=== PATIENT | female | born 1995 | race Caucasian/White ===

== ENCOUNTER → 2019-12-21 13:07 | Outpatient (BNVA) | payer SELFPAY | PROVIDERS: PCP Internal Medicine; Visit Provider Physician Assistant Medical | DX: Z20.828 Contact with and (suspected) exposure to other viral communicable diseases (principal) | CPT/HCPCS: 86481 ==

== ENCOUNTER 2022-05-01 08:35 | Outpatient (REF) | payer OTHER, SELFPAY ==
--- NOTE | ~2022-05-01 | XR_ITS ---
EXAMINATION: XR KNEE, LEFT CLINICAL INFORMATION: Left knee pain COMPARISON: None available. TECHNIQUE: Four views of the left knee. FINDINGS: No evidence for acute fracture or dislocation. No osteochondral lesions observed. Patella is intact. No erosive process seen. No significant joint effusion observed. XR/XR knee LT 4V IMPRESSION: No acute process.
--- NOTE | ~2022-05-01 | XR_ITS ---
EXAMINATION: XR KNEE, RIGHT CLINICAL INFORMATION: Right knee pain COMPARISON: None available. TECHNIQUE: Four views of the right knee. FINDINGS: No evidence for acute fracture or dislocation. No erosive process or osteochondral lesions seen. There is no significant joint effusion noted. XR/XR knee RT 4V IMPRESSION: No acute process.
== END 2022-05-01 08:36 | disposition home or self-care (01) ==
LOC: HO.XRAY 08:35
PROVIDERS: PCP Registered Nurse; Referring Provider Registered Nurse; Visit Provider Internal Medicine
DX: M25.561 Pain in right knee (principal); M25.562 Pain in left knee
CPT/HCPCS: 73564

== ENCOUNTER 2022-12-11 09:59 | Outpatient (REF) | payer OTHER, SELFPAY ==
[2022-12-11 12:16] LABS: Anion Gap 11 (12-20); Blood Urea Nitrogen 11 mg/dL (9-16); Calcium 9.7 mg/dL (8.4-10.2); Carbon Dioxide 26 mmol/L (22-29); Chloride 107 mmol/L (96-108); Cholesterol 177 mg/dL (<200); Estimated Glomerular Filt Rate > 60; Glucose Random 85 mg/dL (60-115); HDL Cholesterol 44 mg/dL (>40); LDL Cholesterol Calculated 119 mg/dL (<100); Magnesium 1.8 mg/dL (1.6-2.6); Sodium 140 mmol/L (135-145); Triglycerides 74 mg/dL (<150)
[2022-12-11 12:24] LABS: Vitamin D 25-OH Total 26.9 ng/mL (>30)
== END 2022-12-11 10:00 | disposition home or self-care (01) ==
LOC: HO.HHCL 09:59
PROVIDERS: Visit Provider Registered Nurse
DX: Z00.00 Encounter for general adult medical examination without abnormal findings (principal); E55.9 Vitamin D deficiency, unspecified; E78.2 Mixed hyperlipidemia
CPT/HCPCS: 36415; 80048; 80061; 82306; 83735

== ENCOUNTER 2023-03-17 17:16 | Emergency (ER) | payer OTHER, SELFPAY ==
[2023-03-17 17:23] VITALS: BP 135/62; PULSE 90; RESP 18; TEMP 36.4; O2SAT 100; BMI 37.0
--- NOTE | 2023-03-17 17:27 | ED.GENADULT ---
HPI - General Adult General Chief complaint: General Medical Stated complaint: needle prick at work Time Seen by Provider: 03/17/23 17:26 Source: patient Mode of arrival: ambulatory Limitations: no limitations History of Present Illness HPI narrative: 27-year-old female without past medical history presents with work-related injury patient had an accidental needle stick to left pointer finger, fat pad prior to arrival. Patient states she accidentally stuck herself with a used intermuscular needle, patient was HIV [id number] months ago. However she wanted to get checked and her job also wanted her to get evaluated today in the emergency department. Patient is vaccinated against hepatitis-B. Inpatient did wash the affected area for 15 minutes after incident. Related Data Allergies Allergy/AdvReac Type Severity Reaction Status Date / Time aspirin Allergy Unknown Verified 06/24/17 00:00 ibuprofen Allergy Unknown Verified 06/24/17 00:00 Latex Gloves Allergy Unknown Uncoded 06/24/17 00:00 Review of Systems Review of Systems: Constitutional : No Weight loss, No Fever, No Chills, No Fatigue, No Malaise ENT/Mouth : No sore throat, No Rhinorrhea Eyes: No Eye Pain, No Swelling, No Redness Cardiovascular : No Chest Pain, No SOB, No Dyspnea on Exertion, No Orthopnea, No Edema, No Palpitations Respiratory : No Cough, No Sputum, No Wheezing Gastrointestinal : No Nausea, No Vomiting, No Diarrhea, No Constipation, No abdominal Pain, No Hematochezia, No Melena Genitourinary : No Dysuria, No Urinary Frequency, No Hematuria, Musculoskeletal : No joint pain, No Myalgias, No Joint Swelling Skin : No Skin Lesions, No rash Neuro : No Weakness, No Numbness, No Dizziness, No Headache Psych : No Anxiety/Panic, No Depression All other systems reviewed and are negative Yes all other systems are reviewed and are negative PMFSH Past Medical History Attestation statement: The following information was validated with the patient. Source: old records reviewed and nursing notes reviewed Physical Exam ED Vital Signs: Vital Signs - 24 hr 03/17/23 17:23 Temperature 97.6 F Pulse Rate 90 Respiratory Rate 18 Blood Pressure 135/62 Pulse Oximetry 100 Oxygen Delivery Method Room Air BMI result Body Mass Index 37.0 vss Appearance: Alert.? Oriented X3.? No acute distress.? Head: Normocephalic, atraumatic, no step-offs or deformities Eyes: Pupils equal, round and reactive to light.? CVS: Normal heart rate and rhythm.? Pulses normal.? Respiratory: No respiratory distress.? Breath sounds normal.? Skin: Skin warm and dry.? Normal skin color.? Normal skin turgor.? + small puncture wound to the fat pad of left pointer finger. No active bleeding Extremities: No lower extremity edema.? No calf ttp. 5/5 strength to bilateral upper and lower extremities Neuro: Oriented X 3.? No motor deficit.? No sensory deficit. CN 2-12 intact Medical Decision Making Medical Decision Making MDM Narrative: 27-year-old female presents with accidental hypodermic needle injury. Physical exam small puncture wound to left pointer finger. No active bleeding Concerns for infection transmitted by blood however unlikely based off patient history and physical exam. MD irwin HIV needle stick risk assessment showing 0.003 % Or, 1 in [id number]. PEP treatment optional but not recommended, according to the article. Plan at this time basic labs. I did discuss initiation of post exposure prophylaxis with patient and discuss risks versus benefits. Patient will wait until her results arise prior to starting this medication. Will give her follow-up with Infectious Disease if necessary. Patient to follow-up with the work infection as this was a work-related injury. Educated patient on diagnosis and treatment plan, answered all question, patient verbalizes understanding. At this time patient will be discharged home, advised to return with new or worsening symptoms. Educated on worrisome signs and symptoms and when to return. At this time I feel comfortable discharge home. Differential Diagnosis Differential Diagnoses: The differential diagnosis associated with the presentation includes Concerns for infection transmitted by blood however unlikely based off patient history and physical exam. Admission/Observation Consideration of admission/observation: Escalation of care including admission/observation considered Lab Data [facility] Lab Attestation statement: I reviewed the patient's lab results. Discharge Plan Discharge Clinical Impression: Accidental hypodermic needlestick injury Patient Disposition: Home, Self-Care Instructions: Needle Stick Injuries (ED) Additional Instructions: Take your medications as prescribed. If you were prescribed antibiotics today, it is important that you take your medication to their entirety, do not skip any doses, do not finish them early. Follow-up with your primary care provider this week. Return to the emergency department with new or worsening symptoms. Such as fevers, chills, chest pain, shortness of breath, nausea, vomiting, dizziness, headache, vision changes, lethargy In case of emergency call 911 0.003?% Or, 1 in [id number]. PEP treatment optional but not recommended, according to the article. Referrals: VIANNEY FELICIANO MD [Physician] - 2 days Physician,Unknown J [Primary Care Provider] - 2 days Stand Alone Forms: Work/School Release
--- NOTE | 2023-03-17 17:41 | MHC.EDTECH ---
PATIENT BLOOD DRAWN AND SENT TO LAB .
[2023-03-17 17:52] LABS: MANUAL DIFF FLAG NO
[2023-03-17 18:07] LABS: Basophils Percent Auto 0.3 % (0-2); Eosinophils Absolute Auto 0.1 X10*3/uL (0.0-0.4); Eosinophils Percent Auto 1.2 % (0-4); Hematocrit 42.5 % (37.0-47.0); Hemoglobin 13.4 g/dl (12.0-16.0); Imm Gran Abs Auto 0.09 X10*3/uL (0.00-0.03); Imm Gran Pct Auto 0.9 % (0.0-0.4); Lymphocytes Absolute Auto 2.5 X10*3/uL (1.2-4.9); Lymphocytes Percent Auto 25.4 % (20-40); Mean Corpuscular HGB Conc 31.5 g/dl (31.0-35.0); Mean Corpuscular Hemoglobin 28.6 pg (27.0-33.0); Mean Corpuscular Volume 90.6 fL (80.0-98.0); Mean Platelet Volume 10.9 fL (9.4-12.3); Monocytes Absolute Auto 0.4 X10*3/uL (0.1-1.2); Monocytes Percent Auto 4.2 % (2-11); Neutrophils Absolute Auto 6.8 x10*3/uL (2.0-8.3); Platelet Count 290 X10*3/uL (160-400); Red Blood Count 4.69 X10*6/uL (4.20-5.50); White Blood Count 9.9 X10*3/uL (4.8-10.8)
[2023-03-17 18:18] LABS: Alanine Aminotransferase 9 U/L (0-31); Albumin Level 4.3 g/dL (3.5-5.0); Alkaline Phosphatase 69 U/L (39-117); Anion Gap 13 (12-20); Aspartate Amino Transferase 16 U/L (5-31); Bilirubin Total 0.1 mg/dL (0.0-1.0); Blood Urea Nitrogen 19 mg/dL (9-16); Calcium 9.9 mg/dL (8.4-10.2); Carbon Dioxide 24 mmol/L (22-29); Chloride 103 mmol/L (96-108); Creatinine Clr Calc Pharmacy 97.7; Estimated Glomerular Filt Rate > 60; Glucose Random 80 mg/dL (60-115); Potassium 4.1 mmol/L (3.3-5.1); Sodium 136 mmol/L (135-145); Total Protein 8.2 g/dL (6.5-8.0)
[2023-03-17 18:19] LABS: HCG Quantitative < 2 mIU/mL
[2023-03-18 07:43] LABS: HBS Num1 0.01 mIU/mL (0-7.99); HBc Num1 0.18 S/CO (0.00-0.79); HBsAGNum1 0.58 S/CO (0.00-0.99); HIV AB/AG Nonreactive (Nonreactive); HIV Num 1 0.08 S/CO (0.00-0.99); Hepatitis A Antibody IgM 0.17 Index (0-0.79); Hepatitis B Core Antibody Nonreactive (Nonreactive); Hepatitis B Surface Antigen Negative (Negative); ~HepC Num1 0.13 S/CO (0.00-0.79); ~Hepatitis A Antibody IgM Nonreactive (Nonreactive); ~Hepatitis B Surface Antibody NONREACTIVE (Nonreactive); ~Hepatitis C Antibody Nonreactive (Nonreactive)
== END 2023-03-17 17:51 | disposition home or self-care (01) ==
PROVIDERS: Physician Assistant; Emergency Provider Internal Medicine
DX: S61.231A Puncture wound without foreign body of left index finger without damage to nail, initial encounter (principal); Y28.9XXA Contact with unspecified sharp object, undetermined intent, initial encounter; Y93.9 Activity, unspecified; Y92.89 Other specified places as the place of occurrence of the external cause; Y99.0 Civilian activity done for income or pay; Z20.828 Contact with and (suspected) exposure to other viral communicable diseases; Z79.899 Other long term (current) drug therapy
CPT/HCPCS: 36415; 80053; 84702; 85025; 86704; 86706; 86709; 86803; 87340; 87389; 99282; 99283

== ENCOUNTER → 2023-03-19 09:10 | Outpatient (BNVA) | payer OTHER, SELFPAY | PROVIDERS: Visit Provider Physician Assistant Medical | DX: Z77.21 Contact with and (suspected) exposure to potentially hazardous body fluids (principal) | CPT/HCPCS: 99203 ==

== ENCOUNTER → 2023-04-23 07:59 | Outpatient (BNVA) | payer OTHER, SELFPAY | DX: Z77.21 Contact with and (suspected) exposure to potentially hazardous body fluids (principal) | CPT/HCPCS: 84450; 84460; 86706; 87389; 99211 ==

== ENCOUNTER 2024-05-18 15:42 | Outpatient (REF) | payer OTHER, SELFPAY ==
[2024-05-18 16:08] LABS: MANUAL DIFF FLAG NO
[2024-05-18 16:16] LABS: Basophils Percent Auto 0.5 % (0-2); Eosinophils Absolute Auto 0.1 X10*3/uL (0.0-0.4); Hematocrit 41.1 % (37.0-47.0); Hemoglobin 13.3 g/dl (12.0-16.0); Imm Gran Abs Auto 0.04 X10*3/uL (0.00-0.03); Imm Gran Pct Auto 0.5 % (0.0-0.4); Lymphocytes Percent Auto 25.6 % (20-40); Mean Corpuscular HGB Conc 32.4 g/dl (31.0-35.0); Mean Corpuscular Hemoglobin 29.8 pg (27.0-33.0); Mean Corpuscular Volume 91.9 fL (80.0-98.0); Mean Platelet Volume 10.8 fL (9.4-12.3); Monocytes Absolute Auto 0.4 X10*3/uL (0.1-1.2); Monocytes Percent Auto 4.9 % (2-11); Neutrophils Absolute Auto 5.2 x10*3/uL (2.0-8.3); Neutrophils Percent Auto 67.5 % (45-73); Platelet Count 253 X10*3/uL (160-400); Red Blood Count 4.47 X10*6/uL (4.20-5.50); Red Cell Distribution Width 11.5 % (11.0-16.0); White Blood Count 7.7 X10*3/uL (4.8-10.8)
[2024-05-18 16:57] LABS: Cholesterol 147 mg/dL (<200); HDL Cholesterol 33 mg/dL (>40); LDL Cholesterol Calculated 93 mg/dL (<100); Triglycerides 105 mg/dL (<150)
[2024-05-18 17:06] LABS: TSH reflex Free T4 0.99 uIU/mL (0.32-4.0); Vitamin D 25-OH Total 22.3 ng/mL (>30)
[2024-05-18 17:21] LABS: Folate 6.8 ng/mL (> or = 4.0); Vitamin B12 385 pg/mL (200-900)
--- OUTSIDE RECORDS SUMMARY | 2024-05-18 18:39 | XMS_ITS | Encounter Summary ---
Author Organization [employer] Address [address] [place] [address] Care Team Providers Care Agile Developer Name Role Phone Keisha Lao ROSEMARY Primary Care Provider [phone] Encounter Details Date Type Department Care Team ([facility] st Contact Info) Description 05/18/[address] [facility] [address], [place] [phone] Trudi Banuelos MD [address] [place] [address] Social History Tobacco Use Types Packs/Day Years Used Date Smoking Tobacco: Some Days Cigarettes Smokeless Tobacco: Never Comments:Friday - Friday one a day Alcohol Use Standard Drinks/Week Comments Not Currently 0 (1 standard drink = 0.6 oz pur e alcohol) Depression Answer Date Recorded Patient Health Questionnaire-9 Score 0 09/24/2023 Patient Health Questionnaire-9 Score 0 09/24/2023 Last PHQ-9: Questionnaire Data Not on file 0 09/24/2023 Housing Stability Answer Date Recorded What is your housing situation today? I have radha porter 11/25/[address] you li ve. Do you have problems with any of the following? None of the above 11/25/2022 Food Insecurity Answer Date Recorded Within the past 12 months, y ou worried that your food would run out before you got money to buy more: Never True 11/25/2022 Within the past 12 months,th e food you bought just didn't last and you didn't have enough money to get more: Never True Transportation Answer Date Recorded In the past 12 months, has l ack of transportation kept you from medical appts, meetings, work or from getting things needed for daily living? No 11/25/2022 Utilities Answer Date Recorded In the past 12 months, has t he electric, gas, oil or water company threatened to shut off services in your home? No 11/25/2022 Depression Answer Date Recorded Patient Health Questionnaire-2 Score 0 09/24/2023 Internet Access Answer Date Recorded Internet Access Q1 Yes 10/13/2023 Internet Access Q2 Not on file 10/13/2023 Comments Unknown Sex and Gender Information Value Date Recorded Sex Assigned at Female 12/10/2021 10:31 AM EDT Legal Sex Female 10:31 AM EDT Gender Identity Female 12/10/2021 10:31 AM EDT Sexual Orientation Straight 12/10/2021 10 :31 AM EDT documented as of this encounter Miscellaneous Notes * Telephone Encounter - Sophia Domingo RN - 05/18/2024 6:22 PM EDT ----- Message from Trudi Banuelos MD sent at 05/18/2024 5:48 PM EDT ----- Please let Trina know that vit D is still low, take vit D 2000 international units daily. Thank you. I will send to pharmacy. TC placed to pt and the above message was discussed pt to package pick up med tomorrow. documented in this encounter Plan of Treatment Not on file documented as of this encounter Visit Diagnoses Not on filedocumented in this encounter Additional Health Concerns Assessment Noted Time PHQ-9 Depression Total Score: 0 09/24/19 24 8:59 AM EDT documented as of this encounter Care Teams Agile Developer Relationship Specialty Start Date End Date Keisha Lao FNP [address] [place] [address] PCP - General Family Medicine 01/29/22 documented as of this encounter
--- OUTSIDE RECORDS SUMMARY | 2024-05-18 18:39 | XMS_ITS | Clinical Summary ---
Author Organization [employer] Address [address] [facility] [address] [place] [address] Care Team Providers Care Patient Care Assistant Name Role Phone Keisha Lao ROSEMARY Primary Care Provider [phone] Allergies Active Allergy Reactions Criticality Noted Date Comments Aspirin 05/09/2016 Other reaction(s): Nausea / Vomiting Ibuprofen 05/09/2016 Other reaction(s): Nausea / Vomiting Able to tolerate generic ibuprofen, but no brand names Medications fluocinolone ([place]-Smoothe) 0.01 % external oil Apply topically. 09/08/19 22 Active triamcinolone (Kenalog) 0.1 % cream apply by topical route 2 times every day a thin layer to the affected area(s). Mix with Cerave 09/08/19 22 Active medroxyPROGESTER one (Provera) 10 MG tablet TAKE 1 TABLET BY MOUTH DAILY FOR 10 DAYS EVERY 90 DAYS IF NO MENSES & AFTER NEGATIVE TEST 10/31/19 22 Active lidocaine (Lidoderm) 5 % patchIndications :Chronic bilateral low back pain, unspecified whether sciatica present Apply 1 patch topically Once daily as needed for moderate pain. Remove & discard patch within 12 hours or as directed by MD. 30 patch 11 05/28/19 24 Active escitalopram (Lexapro) 10 MG tabletIndication s:Anxiety Take 1 tablet (10 mg) by mouth in the morning. 90 tablet 3 09/24/19 24 Active metFORMIN (Glucophage) 500 MG tabletIndication s:Type 2 Diabetes Mellitus Take 1 tablet (500 mg) by mouth Once per day. 90 tablet 3 09/24/19 24 025 Active omeprazole OTC (PriLOSEC OTC) 20 MG EC tabletIndication s:GERD without esophagitis Take 1 tablet (20 mg) by mouth if needed each day (Acid Reflux). 90 tablet 3 09/24/19 24 025 Active amphetamine-dext roamphetamine XR (Adderall XR) 10 MG 24 hr capsuleIndicatio ns:Attention deficit hyperactivity disorder (ADHD), unspecified ADHD type Take 1 capsule (10 mg) by mouth Once per day. Do not crush or chew. 28 capsule 05/16/19 25 025 Active valACYclovir (Valtrex) 1 g tablet Take 1 tablet (1,000 mg) by mouth 2 times daily for 30 doses. Take at the first sign of outbreak, may take for 1mg BID for 1-3 days 30 tablet 05/15/19 25 025 Active predniSONE (Deltasone) 20 MG tabletIndication s:Benign paroxysmal positional vertigo, unspecified laterality,Tinni tus, right 2 tabs po daily for 5 days 10 tablet 05/19/19 25 Active cholecalciferol (Vitamin D-3) 50 MCG (2000 UT) capsuleIndicatio ns:Vitamin D deficiency Take 1 capsule (50 mcg) by mouth Once per day. 30 capsule 11 05/19/19 25 Active amphetamine-dext roamphetamine XR (Adderall XR) 10 MG 24 hr capsuleIndicatio ns:Attention deficit hyperactivity disorder (ADHD), unspecified ADHD type Take 1 capsule (10 mg) by mouth Once per day. Do not crush or chew. 28 capsule 11/16/19 24 025 Discontinued(R eorder (will not trigger notification to Pharmacy)) Active Problems Problem Noted Date Diagnosed Date Benign paroxysmal positional vertigo 05/18/2024 Assessment & Plan (05/18/2024 3:21 PM EDT): Reproducible nystagmus on exam. Suspect BPPV. Instructed to go to [facility] link provided for exercises and supportive care. -prescribed predniSONE (Deltasone) 20 MG for possible inflammation -ordered labs 05/18/24 Vitamin D deficiency 05/18/2024 Assessment & Plan (05/18/2024 3:18 PM EDT): Hx of vitamin D deficiency. -ordered vit D level 05/18/24 Tinnitus, right 05/18/2024 Assessment & Plan (05/18/2024 3:19 PM EDT): Reports Tinnitus with reproducible nystagmus on exam. -prescribed predniSONE (Deltasone) 20 MG -ordered labs 05/18/24 Vitamin D insufficiency 09/24/2023 Assessment & Plan (09/24/2023 9:39 AM EDT): -OTC Vit D supplement -Re-check Vit D level Healthcare maintenance 12/11/2022 Overview (09/24/2023): Routine Health Maintenance Optometry: wears glasses Dental: established with dental home Routine Cancer Screening Breast CA: Routine mammograms starting at 40 Cervical CA: reports pap completed 2021 at [facility], normal. Next due 2024 Colon CA: routine screening starting at 45-75 years old per [facility] Assessment & Plan (12/11/2022 10:07 AM EDT): Flu vaccine administered today ADHD (attention deficit hyperactivity disorder) 07/05/2022 Assessment & Plan (09/24/2023 8:08 AM EDT): -Improvement s/p initiation of pharmacotherapy -Continue Adderall 10mg XR daily, reviewed med safety and SE -Behavioral health: established with therapist Assessment & Plan (12/11/2022 10:04 AM EDT): -Improvement s/p initiation of pharmacotherapy -Continue Adderall 10mg XR daily, reviewed med safety and SE -Behavioral health: established with therapist Assessment & Plan (08/24/2022 4:24 PM EDT): -Improvement s/p initiation of pharmacotherapy -Continue Adderall 5mg daily, reviewed med safety and SE -Behavioral health: in process of establishing with OP therapist Assessment & Plan (07/05/2022 2:03 PM EDT): -Inattention and decreased concentration in multiple setting originating during childhood, no previous eval for ADHD -ASRS-v1.1 Screening positive, further conversation also indicative of potential ADHD -Discussed trial of treatment options - start Adderall 5mg daily. Reviewed med safety and SE. Plan to start on weekend to see how responds to medication -Interested in establishing with therapist, referral to out patient therapy placed GERD without esophagitis 07/03/2022 Assessment & Plan (09/24/2023 9:39 AM EDT): Continue omeprazole daily PRN Anxiety 03/22/2022 Overview (09/24/2023): -Continue with lexapro 10mg daily in the morning -BH: establishing with therapist Assessment & Plan (05/29/2023 8:52 AM EDT): Will trial lexapro 20mg in the morning. May use propranolol 10-20mg 30-60 min before flight if needed. Reviewed med use and SE. PCOS (polycystic ovarian syndrome) 03/20/2022 Overview (09/24/2023): -Previously followed by [facility] -Previous medications include: provera, Hallie Assessment & Plan (09/24/2023 9:38 AM EDT): Metformin 500mg daily Assessment & Plan (12/11/2022 10:03 AM EDT): ?? Start metformin XR 500mg once daily. Reviewed med safety and SE. Assessment & Plan (03/22/2022 8:44 AM EST): Psoriasis 03/20/2022 Overview (03/20/2022): -Followed by [facility] -Clobetasol PRN Seborrheic dermatitis of scalp 01/13/2017 Pitting of nails 01/13/2017 Insomnia 01/13/2017 Overview (03/22/2022): -Previous trial of trazadone and hydroxyzine, but led to daytime drowsiness/sleepiness, melatonin causes nightmares -Continue with lifestyle interventions Chronic low back pain 01/13/2017 Assessment & Plan (05/29/2023 8:50 AM EDT): -Lidocaine patches topical PRN Raynaud's phenomenon 11/11/2016 Oligomenorrhea 05/09/2016 Resolved Problems Problem Noted Date Diagnosed Date Resolved Date Anxiety and depression 03/20/202203/22 Overview (03/20/2022): -Continues on lexapro 5mg daily before bed -Waiting list for therapist Family history of diabetes mellitus 01/22/2022 12/11/2022 Prehypertension 12/09/2016 05/29/2023 Muscle pain 11/11/2016 12/11/2022 Encounters Date Type Department Care Team Description 05/18/2024 3:00 PM EDT Office Visit [facility] [address] [place] [phone] Trudi Banuelos MD Benign paroxysmal positional vertigo, unspecified laterality (Primary Dx); Tinnitus, right; Vitamin D deficiency 05/18/2024 Telephone [facility] [address] [place] [phone] Trudi Banuelos MD 05/18/2024 Orders Only [facility] [address] [address] Trudi Banuelos MD Vitamin D deficiency (Primary Dx) 05/18/2024 Telephone [facility] [address] [place] [phone] Ade Rangel, RN Nurse Triage 05/14/[address] [address] Keri Sharma MD Medication Question 05/14/2024 Orders Only [address] [address] Keri Sharma MD 05/13/2024 Refill [facility] [address] [place] [address] Keisha Lao FNP Attention deficit hyperactivity disorder (ADHD), unspecified ADHD type from Last 3 Months Immunizations Name Administration Dates Next Due DTaP 03/01/1998,04/22/1995 DTaP / Hep B / IPV 07/03/1994,05/03/1994, 995 HPV 9-Valent 11/28/2010 HPV, Unspecified 01/01/2010,12/01/2009 HiB, unspecified 07/03/1994,05/03/1994 Hib (PRP-T) 04/22/1995,03/05/1994 IPV 03/01/1998 Influenza injectable quadriv alent IIV4 with preservative 10/21/2018,10/22/2017 Influenza injectable quadriv alent preservative free 12/11/2022,12/14/2021,01/01/2021,12/13,12/31/2013,01/09/2012,11/28/2010 ,12/01/2009 Influenza, High Dose Seasona l, Preservative Free 10/23/2016 Influenza, seasonal, injecta ble, preservative free 10/23/2023,12/21/2015,11/18/2014 MMR 03/01/1998,03/03/1994 Meningococcal ACWY, unspecified 12/01/2009 Meningococcal MCV4P ACYW-135 10/27/2014 Pfizer Covid-19 Vaccine 12+ 09/07/2020 Td (adult), 5 Lf tetanus tox oid, preservative free, adsorbed 01/01/2005 Tdap 12/14/2021,01/09/2012 Varicella 01/05/2016,09/29/2006 Family History Medical History Relation Name Comments Colon cancer Father's Brother 1 Colon cancer Father's Brother 2 Breast cancer Father's Sister 1 Breast cancer Father's Sister 2 Diabetes Mother Hypertension Mother Kidney disease Mother Leukemia Mother's Brother Lymphoma Mother's Sister Fibromyalgia Sister thyroid disorder Sister Relation Name Status Comments Father's Brother 1 Father's Brother 2 Alive Father's Sister 1 Father's Sister 2 Alive Mother Mother's Brother Mother's Sister Sister Social History Tobacco Use Types Packs/Day Years Used Date Smoking Tobacco: Some Days Cigarettes Smokeless Tobacco: Never Tobacco Cessation:Ready to Q uit: Not Asked; Counseling Given: Not Answered Comments:Friday - Friday one a day Alcohol [...] Orientation Straight 12/10/2021 10 :31 AM EDT Last Filed Vital Signs Vital Sign Reading Time Taken Comments Blood Pressure 116/70 05/18/2024 3:02 PM EDT Pulse 84 05/18/2024 3:02 PM EDT Temperature 36.4 ??C (97.5 ??F) 05/18/2024 3:02 PM ED T Respiratory Rate 18 05/18/2024 3:02 PM EDT Oxygen Saturation 99% 05/18/2024 3:02 PM EDT Inhaled Oxygen Concentration - - Weight 104 kg (228 lb 9.6 oz) 05/18/2024 3:02 PM EDT Height 160 cm (5' 3 ) 09/24/2023 8:57 AM EDT Body Mass Index 40.49 09/24/2023 8:57 AM EDT Plan of Treatment Health Maintenance Due Date Last Done Comments Alcohol/Substance Use Screening 2005 Family Planning (PISQ) 2008 Pneumococcal Vaccine: Pediatrics (0 to 5 Years) and At-Risk Patients (6 to 49) Years) (1 of 2 - PCV) 2012 COVID-19 Vaccine (3 - season) 2023 09/07/2020, 01/31/2020 HPV/Cotest 12/28/2023 Cervical Cancer Screening 04/13/2024 Pap Smear 04/13/2024 04/13/2021 Depression Screening 09/23/2024 09/24/2023, 09/24/19 SDOH Screening 09/23/2024 09/24/2023 Tobacco Screening 09/23/2024 09/24/2023 Lipid Panel 05/18/2029 05/18/2024, 1102/2022, 03/25/2022, Additional history exists DTaP/Tdap/Td Vaccines (8 - Td or Tdap) 12/15/2031 12/14/2021, 01/09/2012, 01/01/2005, Additional history exists Zoster Vaccines (1 of 2) 12/28/2043 RSV Patients and Patients Aged 60 years or older (1 - 1-dose 75+ series) 2068 HIB Vaccines Completed 04/22/1995, 06/11, 05/03/1994, Additional history exists IPV Vaccines Completed 03/01/1998, 06/11, 05/03/1994, Additional history exists HPV Vaccines Completed 11/28/2010, 12/12, 12/01/2009 Meningococcal Vaccine Aged Out 10/27/2014, 010 No longer eligible based on patient's age to complete this topic HIV Screening Completed 03/25/2022 Hepatitis C Screening Completed 03/25/2022 Hepatitis B Vaccines Completed 03/19/2023, 07/03/1994, 05/03/1994, Additional history exists Influenza Vaccine Completed 10/23/2023, , 12/14/2021, Additional history exists Hepatitis A Vaccines Aged Out No long er eligible based on patient's age to complete this topic RSV under 20 months Aged Out No longe r eligible based on patient's age to complete this topic Rotavirus Vaccines Aged Out No longer eligible based on patient's age to complete this topic Procedures Procedure Name Priority Date/Time Associated Diagnosis Comments VITAMIN D,25-OH,TOTAL,IA Routine 05/18/2024 3:46 PM EDT Vitamin D deficiency VITAMIN B12/FOLATE, SERUM PANEL Routine 05/18/2024 3:46 PM EDT Benign paroxysmal positional vertigo, unspecified laterality Tinnitus, right TSH W/REFLEX TO FT4 Routine 05/18/2024 3 :46 PM EDT Benign paroxysmal positional vertigo, unspecified laterality Tinnitus, right CBC WITH AUTO DIFFERENTIAL Routine 05/18/2024 3:46 PM EDT Benign paroxysmal positional vertigo, unspecified laterality Tinnitus, right LIPID PANEL, STANDARD Routine 05/18/2024 3:46 PM EDT Hyperlipidemia, unspecified hyperlipidemia type HEPATITIS C AB W/REFL TO HCV RNA, QN, PCR Routine 03/25/2022 12:16 PM EST Routine health maintenance HIV 1 RNA, QN PCR W/RFL MINGO (RTI,PI,INTEGRASE) Routine 03/25/2022 12:16 PM EST Routine health maintenance HM PAP/HPV Routine 04/13/2021 from Last 3 Months or Most Recently Relevant to Health Maintenance Results * (ABNORMAL) Vitamin D, 25-Hydroxy, Total, Immunoassay (05/18/2024 3:46 PM EDT) Vitamin D 25-OH Total 22.3(L) >30 ng/mL [facility] Comment: Health Based Reference Values*< 20 ??ng/mL ??Fuavhtfid24-61 ng/mL ??Insufficient> 30 ??ng/mL ??Sufficient*Lalo DORSEY. N Engl J Med. 2007;357:266-280There is no well-established upper level of normal vitamin Dlevels. Some laboratories use 50 ng/mL as an upper limit ofnormal. However, toxicity is patient-dependent and may occurat any level. Careful correlation with the patient'spresentation is necessary and, if there is concern forvitamin D toxicity, treatment should be consideredirrespective of the serum level.Care must be taken in interpreting Vitamin D results fromdifferent laboratories and methodologies. ??Published datademonstrated that results from patients undergoinghemodialysis may show a negative bias when tested withvarious automated 25-OH vitamin D assays when compared toLC- MS/MS.When testing samples from patients whose predominant form ofVitamin D is Vitamin D2, such as patients receiving VitaminD2 supplementation, results that are subtherapeutic shouldbe confirmed with another method such as LC-MS/MS. Blood Venous blood specimen / Unknown 05/18/2024 3:46 PM EDT 05/18/2024 4:05 PM EDT us Trudi Banuelos MD LAB BLOOD ORDERABLES Final Result [facility] [address] [place] [address] [phone] * Vitamin B12/Folate, Serum Panel (05/18/2024 3:46 PM EDT) Vitamin B12 385 200 - 900 pg/mL [facility] Comment:NORMAL 200-900 PG/ML INDETERMINATE 160-199 PG/ML DEFICIENT < 160 PG/ML Folate 6.8 > or = 4.0 ng/mL [facility] Comment:Reference Values:> o r = 4.0 ng/mL< 4.0 ng/mL suggests folate deficiency Methotrexate, aminopterin and folinic acid(leucovorin) are chemotherapeutic agents whose molecularstructures are similar to folate; therefore, the Architectfolate assay cannot be used for patients using these drugs. Blood Venous blood specimen / Unknown 05/18/2024 3:46 PM EDT 05/18/2024 4:05 PM EDT Trudi Banuelos MD LAB BLOOD ORDERABLES Final Result Performing Organization Address City/[facility]/ZIP Co de Phone Number [facility] [address] [place] [phone] [phone] * TSH W/Reflex to FT4 (05/18/2024 3:46 PM EDT) TSH reflex Free T4 0.99 0.32 - 4.0 uIU/mL [facility] Blood Venous blood specimen / Unknown 05/18/2024 3:46 PM EDT 05/18/2024 4:05 PM EDT Trudi Banuelos MD LAB BLOOD ORDERABLES Final Result Performing Organization Address [facility]/ZIP Co de Phone Number [facility] [address] [place] [phone] * (ABNORMAL) CBC auto differential (05/18/2024 3:46 PM EDT) Pathologist [facility] White Blood Count 7.7 4.8 - 10.8 X10*3/uL [facility] Red Blood Count 4.47 4.20 - 5.50 X10*6/uL [facility] Hemoglobin 13.3 12.0 - 16.0 g/dl [facility] Hematocrit 41.1 37.0 - 47.0 % [facility] Mean Corpuscular Volume 91.9 80.0 - 98.0 fL [facility] Mean Corpuscular Hemoglobin 29.8 27.0 - 33.0 pg [facility] Mean Corpuscular HGB Conc 32.4 31.0 - 35.0 g/dl [facility] Red Cell Distribution Width 11.5 11.0 - 16.0 % [facility] Platelet Count 253 160 - 400 X10*3/uL [facility] Mean Platelet Volume 10.8 9.4 - 12.3 fL [facility] Neutrophils Percent Auto 67.5 45 - 73 % [facility] Imm Gran Pct Auto 0.5(H) 0.0 - 0.4 % [facility] Lymphocytes Percent Auto 25.6 20 - 40 % [facility] Monocytes Percent Auto 4.9 2 - 11 % [facility] Eosinophils Percent Auto 1.0 0 - 4 % [facility] Basophils Percent Auto 0.5 0 - 2 % [facility] NRBC Pct Auto 0.0 0.0 - 0.2 /100WBC [facility] Neutrophils Absolute Auto 5.2 2.0 - 8.3 x10*3/uL [facility] Imm Gran Abs Auto 0.04(H) 0.00 - 0.03 X10*3/uL [facility] Lymphocytes Absolute Auto 2.0 1.2 - 4.9 X10*3/uL [facility] Monocytes Absolute Auto 0.4 0.1 - 1.2 X10*3/uL [facility] Eosinophils Absolute Auto 0.1 0.0 - 0.4 X10*3/uL [facility] Basophils Absolute Auto 0.0 0.0 - 0.2 X10*3/uL [facility] NRBC Abs Auto 0.000 0.0 - 0.012 X10*3/uL [facility] Blood Venous blood specimen / Unknown 05/18/2024 3:46 PM EDT 05/18/2024 4:05 PM EDT us Trudi Banuelos MD LAB BLOOD ORDERABLES Final Result [facility] [address] [place] [phone] * (ABNORMAL) Lipid Panel, Standard (05/18/2024 3:46 PM EDT) Triglycerides 105 <150 mg/dL [facility] Comment:Desirable Triglyceri de: less than 150 mg/dLBorderline High Triglyceride 150-199 mg/dLHigh Triglyceride: 200-499 mg/dLVery High Triglyceride: greater than or equal to 5OO mg/dL Cholesterol 147 <200 mg/dL [facility] Comment:Desirable Cholestero l: less than 200 mg/dLBorderline High Cholesterol: 200-239 mg/dLHigh Cholesterol: greater than 239 mg/dL LDL Cholesterol Calculated 93 <100 mg/dL [facility] Comment:Desirable LDL: less than 100 mg/dLNear Optimal/Above Optimal LDL: 110- 129 mg/dLBorderline High LDL: 130-159 mg/dLHigh LDL: 160-189 mg/dLVery High LDL: greater than or equal to 190 mg/dL HDL Cholesterol 33(L) >40 mg/dL [facility] Comment:Desirable HDL: great er than 40 mg/dL Note: This HDL assay may give artificially low results in patients with liver disease. Blood Venous blood specimen / Unknown 05/18/2024 3:46 PM EDT 05/18/2024 4:05 PM EDT us Keisha Lao COUNTER SALES REPRESENTATIVE LAB BLOOD ORDERABLES Final Res ult [facility] [address] [place] [phone] * HIV-1 RNA, Quantitative, Real-Time PCR with Reflex to Genotype (RTI, PI, Integrase) (03/25/2022 12:16 PM EST) Pathologist [facility] HIV 1 RNA, QN PCR NOT DETECTED copies/mL [facility] [employer] [facility], HIV 1 RNA, QN PCR NOT DETECTED Log copies/mL [facility], Comment: REFERENCE RANGE: NOT DETECTED copies/mL ?NOT DETECTED ??Log copies/mL This test was performed using Real-Time Polymerase Chain Reaction. Reportable range is 20 to 10,000,000 copies/mL (1.30-7.00 Log copies/mL). 03/25/2022 12:1 6 PM EST 03/25/2022 12:17 PM EST Narrative [facility] - 03/31/2022 1:13 PM EST FASTING:NO PATIENT REFUSED SOME TESTING; PATIENT ENCOURAGED TO RETURN. FASTING: NO Keisha Lao [facility] LAB BLOOD ORDERABLES Final Res ult Performing Organization Address City/[facility] Co de Phone Number [facility] [address] [place] [address], [place] [address] [employer] [address] [address] [place] [address] * Hepatitis C Antibody with Reflex to HCV, RNA, Quantitative, Real-Time PCR (03/25/2022 12:16 PM EST) Hepatitis C Antibody NON-REACT VICENTA NON-REACT VICENTA [facility] Index <0.02 <1.00 [facility] Comment: HCV antibody was non-reactive. There is no laboratory evidence of HCV infection. In most cases, no further action is required. However, if recent HCV exposure is suspected, a test for HCV RNA (test code 96274) is suggested. For additional information please refer to http://education.[employer]/faq/IIU57r9 (This link is being provided for informational/ educational purposes only.) Blood Venous blood specimen / Unknown 03/25/2022 12:16 PM EST 03/25/2022 12:17 PM EST Narrative [facility] - 03/31/2022 1:13 PM EST FASTING:NO PATIENT REFUSED SOME TESTING; PATIENT ENCOURAGED TO RETURN. FASTING: NO Keisha Lao [facility] LAB BLOOD ORDERABLES Final Res ult Performing Organization Address City/[facility]/ZIP Co de Phone Number [facility] [address] [place] [address], [place] [address] [employer] [address] [place] [address], (Nl2) [place] [address] * Hm Pap Smear (04/13/2021) HM Pap smear performed Historical Provider MD HEALTH MAINTENANCE Final Result from Last 3 Months or Most Recently Relevant to Health Maintenance Insurance [facility] Care Teams Patient Care Assistant Relationship Specialty Start Date End Date Keisha Lao FNP [address] [place] [phone] PCP - General Family Medicine 01/29/22
--- OUTSIDE RECORDS SUMMARY | 2024-05-18 18:39 | XMS_ITS | Clinical Summary ---
Author Organization 175 [facility] Address 175 [place] [address] Phone Care Team Providers Care Interventional Tech Name Role Phone Keisha Lao RN Primary Care Provider Allergies Active Allergy Reactions Criticality Noted Date Comments Aspirin 08/05/2017 Ibuprofen 08/15/2017 Medications cholecalciferol (VITAMIN D-3) 1,250 mcg (50,000 unit) capsule Take 1 capsule (50,000 Units total) by mouth 1 (one) time per week. 1 Active amphetamine-dextro amphetamine (ADDERALL) 10 mg tablet Take 1 tablet (10 mg total) by mouth 1 (one) time each day. Max Daily Amount: 10 mg Active metFORMIN (FORTAMET) 1,000 mg 24 hr tablet Take 1 tablet (1,000 mg total) by mouth. Active omeprazole (PriLOSEC) [address] capsule Take 1 capsule (20 mg total) by mouth 1 (one) time each day. 1 Active ondansetron ODT (ZOFRAN-ODT) 4 mg disintegrating tablet Take 1 tablet (4 mg total) by mouth. 1 Active polyethylene glycol (MIRALAX) 17 gram packet Take 17 g by mouth. 1 Active ursodioL (ACTIGALL) 300 mg capsule Take 1 capsule (300 mg total) by mouth. 1 Active semaglutide (Wegovy) 2.4 mg/0.75 mL injection pen ADMINISTER 2.4 MG UNDER THE SKIN 1 TIME A WEEK FOR 4 DAYS 3 mL 3 5 Active Active Problems Problem Noted Date Diagnosed Date Anxiety 12/19/2023 GERD without esophagitis 12/19/2023 PCOS (polycystic ovarian syndrome) 12/19/2023 Immunizations Name Administration Dates Next Due Pfizer SARS-CoV-2 COVID-19, mRNA, LNP-S, preservative free 09/07/2020 Surgical History Surgery Date Site/Laterality Comments OTHER SURGICAL HISTORY PROCEDURE: [facility] LAPS GASTRIC RESTRICTIVE PROCEDURE PLACE DEVICE; COMMENT: lap band placed 04/08/14 Medical History Medical History Date Comments Anxiety DX:Anxiety GERD without esophagitis DX:GERD without esophagitis Hx of laparoscopic gastric banding 08/15/2017 DX:Hx of laparoscopic gastric banding Morbid obesity with BMI of 5 0.0-59.9, adult (CMS/HCC) 08/05/2017 DX:Morbid obesity with BMI o f 50.0-59.9, adult ([facility]) PCOS (polycystic ovarian syndrome) DX:PCOS (polycystic ovarian syndrome) Family History Medical History Relation Name Comments Diabetes Father Hypertension Father Diabetes Mother Hypertension Mother Kidney failure Mother Other: fibromyalgia Mother Relation Name Status Comments Father Alive Mother Alive Social History Tobacco Use Types Packs/Day Years Used Date Smoking Tobacco: Never Smokeless Tobacco: Never Alcohol Use Standard Drinks/Week Comments Yes 0 (1 standard drink = 0.6 oz pur e alcohol) Comments Unknown Sex and Gender Information Value Date Recorded Sex Assigned at Not on file Legal Sex Female 4:58 AM EST Gender Identity Not on file Sexual Orientation Not on file Obstetrics History Last Filed Vital Signs Vital Sign Reading Time Taken Comments Blood Pressure 100/71 02/10/2024 8:14 AM EST Pulse 101 02/10/2024 8:14 AM EST Temperature 36.8 ??C (98.2 ??F) 02/10/2024 8:14 AM ES T Respiratory Rate - - Oxygen Saturation - - Inhaled Oxygen Concentration - - Weight 108 kg (237 lb) 02/10/2024 8:14 AM EST Height 160 cm (5' 3 ) 02/10/2024 8:14 AM EST Body Mass Index 41.98 02/10/2024 8:14 AM EST Plan of Treatment Upcoming Encounters Date Type Department Care Team (Late st Contact Info) Description 08/10/2024 8:00 AM EDT Office Visit Bariatric Surgery - [place] [address] [facility] [address] [place] [address] Lisa Lilly MD [address] [place] [phone] Health Maintenance Due Date Last Done Comments Cervical Cancer Screening: Pap Smear 2014 Social Influencers of Health Screening 01/13/2022 COVID-19 Vaccine ( season) 2023 09/07/2020 Depression Screening 09/23/2024 09/24/2023 Cholesterol Screening (Lipid Panel) 12/12/2027 12/11/2022, 12/11/2022 DTaP,Tdap,and Td Vaccines (9 - Td or Tdap) 12/15/2031 12/14/2021, 01/09/2012, 01/01/2005, Additional history exists Hepatitis B Vaccines Completed 07/03/1994, 05/03/1994, 03/05/1994 HIB Vaccines Completed 04/22/1995, 06/11, 05/03/1994, Additional history exists IPV Vaccines Completed 03/01/1998, 06/11, 05/03/1994, Additional history exists MMR Vaccines Completed 03/01/1998, 03/03/1994 HPV Vaccines Completed 11/28/2010, 12/12, 12/01/2009 Meningococcal ACWY Vaccine Aged Out 10/27/2014, No longer eligible based on patient's age to complete this topic Varicella Vaccines Aged Out 01/05/2016, 09/29/2006 No longer eligible based on patient's age to complete this topic HIV Screening Completed 03/25/2022 Hepatitis C Screening Completed 03/25/2022, 023 Influenza Vaccine Completed 10/23/2023, , 12/14/2021, Additional history exists Hepatitis A Vaccines Aged Out No long er eligible based on patient's age to complete this topic Meningococcal B Vaccine Aged Out No l onger eligible based on patient's age to complete this topic Pneumococcal Vaccine: Pediatrics (0 to 5 Years) and At-Risk Patients (6 to 64 Years) Aged Out No longer eligible based on patient's age to complete this topic RSV Immunization Patients Under 20 months Aged Out No longer eligible based on patient's age to complete this topic Procedures Procedure Name Priority Date/Time Associated Diagnosis Comments LIPID PANEL Routine 12/11/2022 HEPATITIS C SCREENING Routine 03/25/2022 HIV SCREENING Routine 03/25/2022 from Last 3 Months or Most Recently Relevant to Health Maintenance Results * Lipid panel (12/11/2022) Triglycerides 0 mg/dL Comment:no interpretation Cholesterol 0 mg/dL Comment:no interpretation HDL 0 mg/dL Comment:no interpretation LDL Cholesterol 0 mg/dL Comment:no interpretation Blood Venous blood specimen / Unknown [facility] Provider LAB BLOOD ORDERABLES Jasmin l Result * HIV Screening (03/25/2022) HIV Screening abstracted [facility] Provider HEALTH MAINTENANCE Final Result * Hepatitis C Screening (03/25/2022) Hepatitis C Screening abstracted Historical Provider HEALTH MAINTENANCE Final Result from Last 3 Months or Most Recently Relevant to Health Maintenance Insurance [facility] [address] [place] [address] Care Teams Interventional Tech Relationship Specialty Start Date End Date Keisha Lao RN [address] [facility] [address] [place] [address] PCP - General 07/14/23
--- OUTSIDE RECORDS SUMMARY | 2024-05-18 18:40 | XMS_ITS | Encounter Summary ---
Author Organization [employer] Address 75 [facility] 7t [place] [address] Care Team Providers Care Stretch Box Tender Name Role Phone Keisha Lao ROSEMARY Primary Care Provider [phone] Reason for Visit * Reason Onset Date Comments Medication Question 05/14/2024 Encounter Details Date Type Department Care Team ([facility] st Contact Info) Description 05/14/2024 Telephone [facility] MEDICINE [address] [place], [place] [phone] Keri Sharma MD [address] [place], [place] [phone] Medication Question Social History Tobacco Use Types Packs/Day Years [...] encounter Miscellaneous Notes * Telephone Encounter - Keri Sharma MD - 05/14/2024 5:19 PM EDT Patient with known HSV1 cold sore eruption, has been treating with Abreeva without reduction in symptoms. Will trial Valtrex 1gm BID x 1-3 days. Medication sent to [facility] Pharm[facility] documented in this encounter Plan of Treatment Not on file documented as of this encounter Visit Diagnoses Not on filedocumented in this encounter Additional Health Concerns Assessment Noted Time PHQ-9 Depression Total Score: 0 09/24/19 24 8:59 AM EDT documented as of this encounter Care Teams Stretch Box Tender Relationship Specialty Start Date End Date Keisha Lao FNP [address] [place] [phone] PCP - General Family Medicine 01/29/22 documented as of this encounter
--- OUTSIDE RECORDS SUMMARY | 2024-05-18 18:40 | XMS_ITS | Encounter Summary ---
Author Organization [employer] Address [address] [facility] [address] [place] [address] Care Team Providers Care Decay Control Operator Name Role Phone Keisha Lao ROSEMARY Primary Care Provider [phone] Encounter Details Date Type Department Care Team ([facility] st Contact Info) Description 05/18/2024 Orders Only [facility] [address] [place], [place] [phone] Trudi Banuelos MD 230 [place] [address] Vitamin D deficiency (Primary Dx) Social History Tobacco Use Types Packs/Day Years [...] AM EDT documented as of this encounter Plan of Treatment Not on file documented as of this encounter Visit Diagnoses Diagnosis Vitamin D deficiency- Primary documented in this encounter Additional Health Concerns Assessment Noted Time PHQ-9 Depression Total Score: 0 09/24/19 24 8:59 AM EDT documented as of this encounter Care Teams Decay Control Operator Relationship Specialty Start Date End Date Keisha Lao FNP [address] [place] [phone] PCP - General Family Medicine 01/29/22 documented as of this encounter
--- OUTSIDE RECORDS SUMMARY | 2024-05-18 18:40 | XMS_ITS | Encounter Summary ---
Author Organization [employer] Address 75 [facility] [address]t [place] [address] Care Team Providers Care Window Covering Sales Consultant Name Role Phone Keisha Lao ROSEMARY Primary Care Provider [phone] Reason for Visit * Reason Onset Date Comments Nurse Triage 05/18/2024 Encounter Details Date Type Department Care Team ([facility] st Contact Info) Description 05/18/2024 Telephone [facility] MEDICINE 230 [place], [place] [phone] Ade Rangel RN 230 [place], [place] [phone] Nurse Triage Social History Tobacco Use Types Packs/Day Years [...] is your housing situation today? I have radhatrevor porter 11/25/[address] you [...] encounter Miscellaneous Notes * Telephone Encounter - Ade Rangel RN - 05/18/2024 2:09 PM EDT Pt reached out to RN reporting increased dizziness recently. It comes in waves. When it happens, she experience tinnitus. This past Friday05/16/24 she had an episode so severe that she thought she wasgoing to faint. Did not have LOC at that time. She feels like it tends to happen when she gets up quickly. Has been monitoring blood pressure at home: sitting 100/69 Standing 120/94 Sits down again 90/62 Wants labs. Advised that she needs to be seen. Pt agreeable to [facility]. Booked for today in [place]. Pt will go down now. documented in this encounter Plan of Treatment Not on file documented as of this encounter Visit Diagnoses Not on filedocumented in this encounter Additional Health Concerns Assessment Noted Time PHQ-9 Depression Total Score: 0 09/24/19 24 8:59 AM EDT documented as of this encounter Care Teams Window Covering Sales Consultant Relationship Specialty Start Date End Date Keisha Lao FNP [address] [place] [address] PCP - General Family Medicine 01/29/22 documented as of this encounter
--- OUTSIDE RECORDS SUMMARY | 2024-05-18 18:40 | XMS_ITS | Encounter Summary ---
Author Organization [employer] Address 75 [facility] 7t [place] [address] Care Team Providers Care Oncology Social Worker Name Role Phone Keisha Lao Primary Care Provider [phone] Reason for Visit * Reason Onset Date Comments Med Refill 05/13/2024 Encounter Details Date Type Department Care Team ([facility] st Contact Info) Description 05/13/2024 Refill [facility] [address] [place], [place] [phone] Keisha Lao FNP [address] [place] [address] Attention deficit hyperactivity disorder (ADHD), unspecified ADHD type Social History Tobacco Use Types Packs/Day Years [...] as of this encounter Visit Diagnoses Diagnosis Attention deficit hyperactivity disorder (ADHD), unspecified ADHD type documented in this encounter Additional Health Concerns Assessment Noted Time PHQ-9 Depression Total Score: 0 09/24/19 24 8:59 AM EDT documented as of this encounter Care Teams Oncology Social Worker Relationship Specialty Start Date End Date Keisha Lao FNP [address] [place] [phone] PCP - General Family Medicine 01/29/22 documented as of this encounter
--- OUTSIDE RECORDS SUMMARY | 2024-05-18 18:40 | XMS_ITS | Encounter Summary ---
Author Organization [employer] Address 75 [facility] 7t [place] [address] Care Team Providers Care Linseed Oil Press Tender Name Role Phone Keisha Lao ROSEMARY Primary Care Provider [phone] Encounter Details Date Type Department Care Team ([facility] st Contact Info) Description 05/14/2024 Orders Only [facility] MEDICINE 230 [place], [place] [phone] Keri Sharma MD 230 [place], [place] [phone] Social History Tobacco Use Types Packs/Day Years [...] documented as of this encounter Care Teams Linseed Oil Press Tender Relationship Specialty Start Date End Date Keisha Lao FNP [address] [place] [address] PCP - General Family Medicine 01/29/22 documented as of this encounter
--- OUTSIDE RECORDS SUMMARY | 2024-05-18 18:40 | XMS_ITS | Encounter Summary ---
Author Organization [employer] Address 75 [facility] 7t [place] [address] Care Team Providers Care Artist Suspect Name Role Phone SantiKeisha prabhakar ROSEMARY Primary Care Provider Reason for Visit * Reason Comments Dizziness Encounter Details Date Type Department Care Team ([facility] st Contact Info) Description 05/18/2024 3:00 PM EDT Office Visit [facility] 230 [place], [place] [phone] Trudi Banuelos MD 230 [place], [place] [phone] Benign paroxysmal positional vertigo, unspecified laterality (Primary Dx); Tinnitus, right; Vitamin D deficiency Social History Tobacco Use Types Packs/Day Years [...] AM EDT documented as of this encounter Last Filed Vital Signs Vital Sign Reading [...] 9.6 oz) 05/18/2024 3:02 PM EDT Height - - Body Mass Index 40.49 09/24/2023 8:57 AM EDT documented in this encounter Patient Instructions * Patient Instructions* Trudi Banuelos MD - 05/18/2024 3:00 PM EDT [email or web address] documented in this encounter Progress Notes * Zuly Hamm - 05/18/2024 3:00 PM EDT Subjective Patient ID: Trina Ledbetter is a 28 y.o. female who presents to walk in clinic for Dizziness. Pt reports on Friday she heard ringing on her ears and when she got up she started getting dizzy, so she ate some fruit. She reports she felt a little better after the fruit cup but then turning her head fast made her dizziness reoccur. Pt reports she has these episodes of ringing with associated dizziness throughout the week this week. Review of Systems Constitutional: Negative for fever and unexpected weight change. Respiratory: Negative for shortness of breath. Cardiovascular: Negative for chest pain. Gastrointestinal: Negative for abdominal pain. Genitourinary: Negative for difficulty urinating. Neurological: Positive for dizziness. Objective Visit Vitals BP 116/70 (BP Location: Left arm, Patient Position: Sitting, BP Cuff Size: Adult) Pulse 84 Temp 97.5 ??F (36.4 ??C) (Temporal) Resp 18 Body mass index is 40.49 kg/m??. Physical Exam Constitutional: Appearance: Normal appearance. Eyes: Extraocular Movements: Right eye: Nystagmus (reproducible with moving neck) present. Left eye: Nystagmus (reproducible with moving neck) present. Cardiovascular: Rate and Rhythm: Normal rate and regular rhythm. Heart sounds: Normal heart sounds. Pulmonary: Effort: Pulmonary effort is normal. Breath sounds: Normal breath sounds. Musculoskeletal: Cervical back: Normal range of motion and neck supple. Neurological: General: No focal deficit present. Mental Status: She is alert. Psychiatric: Behavior: Behavior normal. Problem List Items Addressed This Visit Benign paroxysmal positional vertigo - Primary Reproducible nystagmus on exam. Suspect BPPV. Instructed to go to [email or web address] link provided for exercises and supportive care. -prescribed predniSONE (Deltasone) 20 MG for possible inflammation -ordered labs 05/18/24 Relevant Medications predniSONE (Deltasone) 20 MG tablet Other Relevant Orders CBC auto differential TSH W/Reflex to FT4 RPR (Monitor) with Reflex to Titer Vitamin B12/Folate, Serum Panel Tinnitus, right Reports Tinnitus with reproducible nystagmus on exam. -prescribed predniSONE (Deltasone) 20 MG -ordered labs 05/18/24 Relevant Medications predniSONE (Deltasone) 20 MG tablet Other Relevant Orders CBC auto differential TSH W/Reflex to FT4 RPR (Monitor) with Reflex to Titer Vitamin B12/Folate, Serum Panel Vitamin D deficiency Hx of vitamin D deficiency. -ordered vit D level 05/18/24 Relevant Orders Vitamin D, 25-Hydroxy, Total, Immunoassay -No evidence of acute disease process. Suspect BPPV. Symptoms mild. -Will treat with low dose of steroid. -ER precautions discussed. -Seek medical attention for worsening symptoms. I, Zuly Hamm, am serving as a scribe to document services personally performed by Dr. Bermudez, based on the patient's response to questions by provider and providers statements to me. documented in this encounter Miscellaneous Notes * Assessment & Plan Note - Zuly Hamm - 05/18/2024 3:20 PM EDTAssociated Problem(s): Benign paroxysmal positional vertigo Reproducible nystagmus on exam. Suspect BPPV. Instructed to go to [employer] link provided for exercises and supportive care. -prescribed predniSONE (Deltasone) 20 MG for possible inflammation -ordered labs 05/18/24 * Assessment & Plan Note - Zuly Hamm - 05/18/2024 3:19 PM EDTAssociated Problem(s): Tinnitus, right Reports Tinnitus with reproducible nystagmus on exam. -prescribed predniSONE (Deltasone) 20 MG -ordered labs 05/18/24 * Assessment & Plan Note - Zuly Hamm - 05/18/2024 3:18 PM EDTAssociated Problem(s): Vitamin D deficiency Hx of vitamin D deficiency. -ordered vit D level 05/18/24 documented in this encounter Plan of Treatment Scheduled Orders Name Type Priority Associated Diagnoses Orde r Schedule RPR (Monitor) with Reflex to??Titer Lab Routine Benign paroxysmal positional vertigo, unspecified laterality Tinnitus, right Expected: 05/18/2024, Expires: 05/18/2025 documented as of this encounter Procedures Procedure Name Priority Date/Time Associated Diagnosis [...] paroxysmal positional vertigo, unspecified laterality Tinnitus, right documented in this encounter Results * (ABNORMAL) Vitamin D, 25-Hydroxy, Total, Immunoassay (05/18/2024 3:46 PM EDT) [facility] Vitamin D 25-OH Total 22.3(L) >30 ng/mL [facility] Comment: Health Based Reference Values*< 20 ??ng/mL ??[id number] ng/mL ??Insufficient> 30 ??ng/mL ??Sufficient*Lalo DORSEY. N [...] BLOOD ORDERABLES Final Result Performing Organization Address [facility]/ZIP Co de Phone Number [facility] [address] [place] [phone] * Vitamin B12/Folate, Serum Panel (05/18/2024 3:46 PM EDT) Vitamin B12 385 200 - 900 pg/mL [facility] Comment:NORMAL 200-900 PG/ML INDETERMINATE 160-199 PG/ML DEFICIENT < 160 PG/ML Folate 6.8 > or = 4.0 ng/mL [facility] Comment:Reference Values:> o r = 4.0 [...] BLOOD ORDERABLES Final Result Performing Organization Address City/[facility] Co de Phone Number [facility] [address] [place] [phone] * TSH W/Reflex to FT4 (05/18/2024 3:46 PM EDT) TSH reflex Free T4 0.99 0.32 - 4.0 uIU/mL [facility] Blood Venous blood specimen / Unknown 05/18/2024 3:46 PM EDT 05/18/2024 4:05 PM EDT Trudi Banuelos MD LAB BLOOD ORDERABLES Final Result [facility] [address] [place] [phone] * (ABNORMAL) CBC auto differential (05/18/2024 3:46 PM EDT) White Blood Count 7.7 4.8 - 10.8 X10*3/uL [facility] Red Blood Count 4.47 4.20 - 5.50 X10*6/uL [facility] Hemoglobin 13.3 12.0 - 16.0 g/dl [facility] Hematocrit 41.1 37.0 - 47.0 % [facility] Mean Corpuscular Volume 91.9 80.0 - 98.0 fL [facility] Mean Corpuscular Hemoglobin 29.8 27.0 - 33.0 pg [facility] Mean Corpuscular HGB Conc 32.4 31.0 - 35.0 g/dl [facility] Red Cell Distribution Width 11.5 11.0 - 16.0 % [facility] Platelet Count 253 160 - 400 X10*3/uL [facility] Mean Platelet Volume 10.8 9.4 - 12.3 fL [facility] Neutrophils Percent Auto 67.5 45 - 73 % [facility] Imm Gran Pct Auto 0.5(H) 0.0 - 0.4 % [facility] Lymphocytes Percent Auto 25.6 20 - 40 % [facility] Monocytes Percent Auto 4.9 2 - 11 % [facility] Eosinophils Percent Auto 1.0 0 - 4 % [facility] Basophils Percent Auto 0.5 0 - 2 % [facility] NRBC Pct Auto 0.0 0.0 - 0.2 /100WBC [facility] Neutrophils Absolute Auto 5.2 2.0 - 8.3 x10*3/uL [facility] Imm Gran Abs Auto 0.04(H) 0.00 - 0.03 X10*3/uL [facility] Lymphocytes Absolute Auto 2.0 1.2 - 4.9 X10*3/uL [facility] Monocytes Absolute Auto 0.4 0.1 - 1.2 X10*3/uL [facility] Eosinophils Absolute Auto 0.1 0.0 - 0.4 X10*3/uL [facility] Basophils Absolute Auto 0.0 0.0 - 0.2 X10*3/uL [facility] NRBC Abs Auto 0.000 0.0 - 0.012 X10*3/uL [facility] Blood Venous blood specimen / Unknown 05/18/2024 3:46 PM EDT 05/18/2024 4:05 PM EDT Trudi Banuelos MD LAB BLOOD ORDERABLES Final Result Performing Organization Address City/State/[facility] Co de Phone Number [facility] [address] [place] [phone] documented in this encounter Visit Diagnoses Diagnosis Benign paroxysmal positional vertigo, unspecified laterality- Primary Tinnitus, right Unspecified tinnitus Vitamin D deficiency documented in this encounter Additional Health Concerns Assessment Noted Time PHQ-9 Depression Total Score: 0 09/24/19 24 8:59 AM EDT documented as of this encounter Care Teams Artist Suspect Relationship Specialty Start Date End Date Keisha Lao FNP [address] [place] [address] PCP - General Family Medicine 01/29/22 documented as of this encounter
[2024-05-19 09:34] LABS: RPR Rapid Plasma Reagin NON-REACTIVE (NON-REACTIVE)
== END 2024-05-18 15:43 | disposition home or self-care (01) ==
LOC: HO.HHCL 15:42
PROVIDERS: Visit Provider Family Medicine
DX: H81.10 Benign paroxysmal vertigo, unspecified ear (principal); H93.11 Tinnitus, right ear; E55.9 Vitamin D deficiency, unspecified; E78.5 Hyperlipidemia, unspecified
CPT/HCPCS: 36415; 80061; 82306; 82607; 82746; 84443; 85025; 86592

== ENCOUNTER 2024-10-13 13:16 | Outpatient (REF) | payer OTHER, SELFPAY ==
--- OUTSIDE RECORDS SUMMARY | 2024-10-13 15:35 | XMS_ITS | Encounter Summary ---
Author Organization [employer] Address 75 [facility] 7t [place] [address] Care Team Providers Care Vp Integrity Name Role Phone Keisha Lao ROSEMARY Primary Care Provider [phone] Encounter Details Date Type Department Care Team ([facility] st Contact Info) Description 05/14/2024 Orders Only [facility] MEDICINE 230 [place], [place] [phone] Keri Sharma MD [address] [place], [place] [phone] Social History Tobacco Use Types Packs/Day Years [...] documented as of this encounter Care Teams Vp Integrity Relationship Specialty Start Date End Date Keisha Lao FNP [address] [place] [phone] PCP - General Family Medicine 01/29/22 documented as of this encounter
--- OUTSIDE RECORDS SUMMARY | 2024-10-13 15:35 | XMS_ITS | Encounter Summary ---
Author Organization [employer] Address [address] [place] [address] Care Team Providers Care Olive Packer Name Role Phone Keisha Lao Primary Care Provider [phone] Reason for Referral * Consultation (Routine) - Closed Specialty Diagnoses / Procedures Referred By Edna reynolds Referred To Contact Obstetrics and Gynecology Diagnoses Less than 8 weeks gestation of Keisha Lao FNP [address] [place] [address] Phone: tel: fax: [facility] [place], [place] Phone: tel: fax: Referral ID Status Reason Start Date Expiration Date V isits Requested Visits Authorized [id number] Closed Specialty Services Required 10/13/2024 10/13/2025 1 1 Encounter Details Date Type Department Care Team ([facility] st Contact Info) Description 10/13/2024 Orders Only [facility] MED & PEDS [address] [place], [place] [phone] Keisha Lao FNP [address] [place], [place] [phone] Healthcare maintenance (Primary Dx); Less than 8 weeks gestation of Social History Tobacco Use Types Packs/Day Years Used Date Smoking Tobacco: Some Days Cigarettes Smokeless Tobacco: Never Comments:Friday - Friday one a day Alcohol Use Standard Drinks/Week Comments Not Currently 0 (1 standard drink = 0.6 oz pur e alcohol) Depression Answer Date Recorded Patient Health Questionnaire-9 Score 6 09/02/2024 Patient Health Questionnaire-9 Score 6 09/02/2024 Last PHQ-9: Questionnaire Data Not on file 0 09/02/2024 Housing Stability Answer Date Recorded What is [...] Answer Date Recorded Patient Health Questionnaire-2 Score 2 09/02/2024 Internet Access Answer Date Recorded Internet Access Q1 Yes 10/13/2023 Internet Access Q2 Not on file 10/13/2023 Comments Unknown Sex and Gender Information Value Date Recorded Sex Assigned at Female 12/10/2021 10:31 AM EDT Legal Sex Female 10:31 AM EDT Gender Identity Female 12/10/2021 10:31 AM EDT Sexual Orientation Straight 12/10/2021 10 :31 AM EDT documented as of this encounter Plan of Treatment Scheduled Orders Name Type Priority Associated Diagnoses Orde r Schedule hCG, Total, Quantitative Lab Routine Healthcare maintenance Expected: 10/13/2024 (Approximate), Expires: 10/13/2025 Scheduled Referrals Name Type Priority Associated Diagnoses Order Schedule Referral to Obstetrics / Gynecology Outpatient Referral Routine Less than 8 weeks gestation of Expected: 10/13/2024 (Approximate), Expires: 10/13/2025 documented as of this encounter Visit Diagnoses Diagnosis Healthcare maintenance- Primary Less than 8 weeks gestation of documented in this encounter Additional Health Concerns Assessment Noted Time PHQ-9 Depression Total Score: 6 09/03/19 25 11:15 AM EDT documented as of this encounter Care Teams Olive Packer Relationship Specialty Start Date End Date Keisha Lao FNP [address] [place] [phone] PCP - General Family Medicine 01/29/22 documented as of this encounter
--- OUTSIDE RECORDS SUMMARY | 2024-10-13 15:35 | XMS_ITS | Clinical Summary ---
Author Organization [facility] Address [address] [place] [address] Phone Care Team Providers Care Fender Mechanic Name Role Phone Keisha Lao RN Primary [...] (300 mg total) by mouth. 1 Active Wegovy 2.4 mg/0.75 mL injection pen ADMINISTER 2.4 MG UNDER THE SKIN 1 TIME A WEEK FOR 4 DAYS 3 mL 3 5 Active Active Problems Problem Noted Date Diagnosed Date Anxiety 12/19/2023 GERD without esophagitis 12/19/2023 PCOS (polycystic ovarian syndrome) 12/19/2023 Encounters Date Type Department Care Team Description 09/17/2024 Telephone Bariatric Surgery - [address] [phone] Lisa Lilly MD 09/08/2024 Telephone Bariatric Surgery - [address] [phone] Lisa Lilly MD 08/10/2024 8:00 AM EDT Office Visit Bariatric Surgery - [address] [phone] Lisa Lilly MD Class 2 obesity due to excess calories with body mass index (BMI) of 38.0 to 38.9 in adult, unspecified whether serious comorbidity present (Primary Dx) from Last 3 Months Immunizations Name Administration Dates Next Due Pfizer SARS-CoV-2 COVID-19, mRNA, LNP-S, preservative free 09/07/2020 Surgical History Surgery Date Site/Laterality Comments OTHER SURGICAL HISTORY PROCEDURE: [place] LAPS GASTRIC RESTRICTIVE PROCEDURE PLACE DEVICE; COMMENT: lap band placed 04/08/14 Medical History Medical History Date Comments Anxiety DX:Anxiety GERD without esophagitis DX:GERD without esophagitis Hx of laparoscopic gastric banding 08/15/2017 DX:Hx of laparoscopic gastric banding Morbid obesity with BMI of 5 0.0-59.9, adult ([facility] V24, [facility] V28) 08/05/2017 DX:Morbid obesity wit h BMI of 50.0-59.9, adult ([facility]) PCOS (polycystic ovarian syndrome) DX:PCOS (polycystic ovarian [...] Sign Reading Time Taken Comments Blood Pressure 100/68 08/10/2024 8:10 AM EDT Pulse 85 08/10/2024 8:10 AM EDT Temperature 36.6 C (97.8 F) 08/10/2024 8:10 AM EDT Respiratory Rate - - Oxygen Saturation - - Inhaled Oxygen Concentration - - Weight 99.8 kg (220 lb) 08/10/2024 8:10 AM EDT Height 160 cm (5' 3 ) 08/10/2024 8:10 AM EDT Body Mass Index 38.97 08/10/2024 8:10 AM EDT Plan of Treatment Upcoming Encounters Date Type Department Care Team (Late st Contact Info) Description 02/15/2025 8:15 AM EST Office Visit Bariatric Surgery - [address] [place] [phone] Lisa Lilly MD [address] [place] [phone] Health Maintenance Due Date Last Done Comments Cervical Cancer Screening: Pap Smear 2014 Social Influencers of Health Screening 01/13/2022 Depression Screening 02/11/2024 COVID-19 Vaccine ( season) 2024 09/07/2020 Influenza Vaccine (#1) 2024 , 12/11/2022, 12/14/2021, Additional history exists Cholesterol Screening (Lipid Panel) 05/18/2029 05/18/2024, 12/11/2022, 12/11/2022 DTaP,Tdap,and Td Vaccines (9 - [...] 03/25/2022 Hepatitis C Screening Completed 03/25/2022, 023 Hepatitis A Vaccines Aged Out No long er eligible based on patient's age to complete this topic Meningococcal B Vaccine Aged Out No l onger eligible based on patient's age to complete this topic Pneumococcal Vaccine: Pediatrics (0 to 5 Years) and At-Risk Patients (6 to 49 Years) Aged Out No longer eligible based [...] Health Maintenance Results * Lipid panel (12/11/2022) Pathologist [facility] Triglycerides 0 mg/dL Comment:no interpretation Cholesterol 0 mg/dL Comment:no interpretation HDL 0 mg/dL Comment:no interpretation LDL Cholesterol 0 mg/dL Comment:no interpretation Blood Venous blood specimen / Unknown Historical Provider LAB BLOOD ORDERABLES Jasmin l Result * HIV Screening (03/25/2022) Pathologist [facility] HIV Screening abstracted Historical Provider HEALTH MAINTENANCE Final Result * Hepatitis C Screening (03/25/2022) Pathologist [facility] Hepatitis C Screening abstracted Historical Provider HEALTH MAINTENANCE Final Result from Last 3 Months or Most Recently Relevant to Health Maintenance Insurance [facility] [address] [place] [address] Care Teams Fender Mechanic Relationship Specialty Start Date End Date Keisha Lao RN [address] [facility] [address] [place] [address] PCP - General 07/14/23
--- OUTSIDE RECORDS SUMMARY | 2024-10-13 15:35 | XMS_ITS | Clinical Summary ---
Author Organization [employer] Address [address] [facility] 7[address] [place] [address] Care Team Providers Care Space Studies Faculty Member Name Role Phone Keisha Lao ROSEMARY Primary Care Provider [phone] Allergies Active Allergy Reactions Criticality Noted Date Comments Aspirin 05/09/2016 Other reaction(s): Nausea / Vomiting Ibuprofen 05/09/2016 Other reaction(s): Nausea / Vomiting Able to tolerate generic ibuprofen, but no brand names Medications fluocinolone (Hodges-Smoothe) 0.01 % external oil Apply topically. 2 Active triamcinolone (Kenalog) 0.1 % cream apply by topical route 2 times every day a thin layer to the affected area(s). Mix with Cerave 2 Active medroxyPROGESTER one (Provera) 10 MG tablet TAKE 1 TABLET BY MOUTH DAILY FOR 10 DAYS EVERY 90 DAYS IF NO MENSES & AFTER NEGATIVE TEST 2 Active lidocaine (Lidoderm) 5 % patchIndications :Chronic bilateral low back pain, unspecified whether sciatica present Apply 1 patch topically Once daily as needed for moderate pain. Remove & discard patch within 12 hours or as directed by MD. 30 patch 11 4 Active escitalopram (Lexapro) 10 MG tabletIndication s:Anxiety Take 1 tablet (10 mg) by mouth in the morning. 90 tablet 3 4 Active omeprazole OTC (PriLOSEC OTC) 20 MG EC tabletIndication s:GERD without esophagitis Take 1 tablet (20 mg) by mouth if needed each day (Acid Reflux). 90 tablet 3 4 Active cholecalciferol (Vitamin D-3) 50 MCG (1999) capsuleIndicatio ns:Vitamin D deficiency Take 1 capsule (50 mcg) by mouth Once per day. 30 capsule 11 5 Active amphetamine-dext roamphetamine XR (Adderall XR) 5 MG 24 hr capsule Take 1 capsule (5 mg) by mouth in the morning. Do not crush or chew. 30 capsule 5 Active Wegovy 2.4 MG/0.75ML solution auto-injector ADMINISTER 2.4 MG UNDER THE SKIN 1 TIME A WEEK FOR 4 DAYS Active 28-0.8 MG tablet Take 1 tablet by mouth Once per day. 90 tablet 3 5 10/14/19 26 Active Active Problems Problem Noted Date Diagnosed Date Benign paroxysmal positional vertigo 05/18/2024 Assessment & Plan (05/18/2024 3:21 PM EDT): Reproducible nystagmus on exam. Suspect BPPV. Instructed to go to [employer] link provided for exercises and supportive care. [...] Vit D level Healthcare maintenance 12/11/2022 Overview (09/02/2024): Routine Health Maintenance Optometry: wears glasses Dental: established with dental home Routine Cancer Screening Breast CA: Routine mammograms starting at 40 Cervical CA: reports pap completed 2021 at [facility], normal. Next due 2024. Referral to DIRECTORY OPERATOR placed 08/2024 Colon CA: routine screening starting at 45-75 years old per [facility] Assessment & Plan (12/11/2022 10:07 AM EDT): Flu vaccine administered today ADHD (attention deficit hyperactivity disorder) 07/05/2022 Assessment & Plan (09/02/2024 11:19 AM EDT): -Improvement s/p initiation of pharmacotherapy -Decrease to Adderall 5mg XR daily, reviewed med safety and SE -Behavioral health: previous trial of therapist. Currently well controlled with meditation and mindfulness Assessment & Plan (09/24/2023 8:08 AM EDT): [...] syndrome) 03/20/2022 Overview (09/24/2023): -Previously followed by [facility] DIRECTORY OPERATOR -Previous medications include: provera, Hallie Assessment & Plan (09/24/2023 9:38 AM EDT): Metformin 500mg daily Assessment & Plan (12/11/2022 10:03 AM EDT): Start metformin XR 500mg once daily. Reviewed med safety and SE. Assessment & Plan (03/22/2022 8:44 AM EST): Psoriasis 03/20/2022 Overview (03/20/2022): -Followed by [facility] Derm Clinic -Clobetasol PRN Seborrheic dermatitis of [...] Encounters Date Type Department Care Team Description 10/13/2024 Orders Only [facility] CHC MED & PEDS [address] [place] [address] Keisha Lao FNP Healthcare maintenance (Primary Dx); Less than 8 weeks gestation of 09/01/2024 9:45 AM EDT Office Visit [facility] MEDICINE [address] [place], [place] [phone] Keisha Lao FNP Attention deficit hyperactivity disorder (ADHD), unspecified ADHD type (Primary Dx); Cervical cancer screening; Healthcare maintenance 09/01/2024 Travel 08/31/2024 Telephone [facility] MEDICINE [address] [place] [phone] Keisha Lao FNP CHART PREP 08/31/2024 Travel from Last 3 Months Immunizations Immunization Administration Dates Next Due DTaP 03/01/1998,04/22/1995 DTaP [...] Sign Reading Time Taken Comments Blood Pressure 100/64 09/01/2024 9:52 AM EDT Pulse 88 09/01/2024 9:52 AM EDT Temperature 36.7 C (98.1 F) 09/01/2024 9:52 AM EDT Respiratory Rate 18 09/01/2024 9:52 AM EDT Oxygen Saturation 98% 09/01/2024 9:52 AM EDT Inhaled Oxygen Concentration - - Weight 97.5 kg (215 lb) 09/01/2024 9:52 AM EDT Height 160 cm (5' 3 ) 09/01/2024 9:52 AM EDT Body Mass Index 38.09 09/01/2024 9:52 AM EDT Plan of Treatment Health Maintenance Due Date Last Done Comments Family Planning (PISQ) 2008 Pneumococcal Vaccine: Pediatrics (0 to 5 Years) and At-Risk Patients (6 to 49) Years (1 of 2 - PCV) 2012 HPV/Cotest 12/28/2023 Cervical Cancer Screening 04/13/2024 Pap Smear 04/13/2024 04/13/2021 Tobacco Screening 09/23/2024 09/24/2023 COVID-19 Vaccine ( season) 2024 09/07/2020, 01/31/2020 Influenza Vaccine (#1) 2024 , 12/11/2022, 12/14/2021, Additional history exists Alcohol/Substance Use Screening 09/02/2025 09/02/2024 Depression Screening 09/02/2025 09/02/2024, 09/03/19 25 Disability Screening 09/02/2025 09/02/2024 SDOH Screening 09/02/2025 09/02/2024 Lipid Panel 05/18/2029 05/18/2024, 11/0 02/2022, 03/25/2022, Additional history exists DTaP/Tdap/Td Vaccines (8 [...] Completed 03/19/2023, 07/03/1994, 05/03/1994, Additional history exists Hepatitis A Vaccines Aged [...] Name Priority Date/Time Associated Diagnosis Comments LIPID PANEL, STANDARD Routine 05/18/2024 3:46 PM EDT Hyperlipidemia, unspecified hyperlipidemia type HEPATITIS C AB W/REFL TO HCV RNA, QN, PCR Routine 03/25/2022 12:16 PM EST Routine health maintenance HIV 1 RNA, QN PCR W/RFL MINGO (RTI,PI,INTEGRASE) Routine 03/25/2022 12:16 PM EST Routine health maintenance HM PAP/HPV Routine 04/13/2021 from Last 3 Months or Most Recently Relevant to Health Maintenance Results * (ABNORMAL) Lipid Panel, Standard (05/18/2024 3:46 PM EDT) Triglycerides 105 <150 mg/dL [facility] Comment:Desirable Triglyceri de: less than 150 mg/dLBorderline High Triglyceride 150-199 mg/dLHigh Triglyceride: 200-499 mg/dLVery High Triglyceride: greater than or equal to 5OO mg/dL Cholesterol 147 <200 mg/dL [facility] Comment:Desirable Cholestero l: less than 200 mg/dLBorderline High Cholesterol: 200-239 mg/dLHigh Cholesterol: greater than 239 mg/dL LDL Cholesterol Calculated 93 <100 mg/dL [facility] Comment:Desirable LDL: less than 100 mg/dLNear Optimal/Above Optimal LDL: 110- 129 mg/dLBorderline High LDL: 130-159 mg/dLHigh LDL: 160-189 mg/dLVery High LDL: greater than or equal to 190 mg/dL HDL Cholesterol 33(L) >40 mg/dL [facility] Comment:Desirable HDL: great er than 40 mg/dL Note: This HDL assay may give artificially low results in patients with liver disease. Blood Venous blood specimen / Unknown 05/18/2024 3:46 PM EDT 05/18/2024 4:05 PM EDT us Keisha Lao CHANNEL SPECIALIST LAB BLOOD ORDERABLES Final Res ult [facility] [address] [place] [phone] * HIV-1 RNA, Quantitative, Real-Time PCR with Reflex to Genotype (RTI, PI, Integrase) (03/25/2022 12:16 PM EST) HIV 1 RNA, QN PCR NOT DETECTED copies/mL [facility] HIV 1 RNA, QN PCR NOT DETECTED Log copies/mL [facility] Comment: REFERENCE RANGE: NOT DETECTED copies/mL NOT DETECTED Log copies/mL This test was performed using Real-Time Polymerase Chain Reaction. Reportable range is 20 to 10,000,000 copies/mL (1.30-7.00 Log copies/mL). 03/25/2022 12:1 6 PM EST 03/25/2022 12:17 PM EST Narrative [facility] - 03/31/2022 1:13 PM EST FASTING:NO PATIENT REFUSED SOME TESTING; PATIENT ENCOURAGED TO RETURN. FASTING: NO Keisha Lao [facility] LAB BLOOD ORDERABLES Final Res ult Performing Organization Address [facility] Co de Phone Number [address], [facility] [place] [phone] [facility], [address] [place] [phone] * Hepatitis C Antibody with Reflex to HCV, RNA, Quantitative, Real-Time PCR (03/25/2022 12:16 PM EST) Hepatitis C Antibody NON-REACT VICENTA NON-REACT VICENTA [employer] Index <0.02 <1.00 [employer] Comment: HCV antibody was non-reactive. There is no laboratory evidence of HCV infection. In most cases, no further action is required. However, if recent HCV exposure is suspected, a test for HCV RNA (test code 49657) is suggested. For additional information please refer to http://education.[employer] Network/faq/HKJ27e6 (This link is being provided for informational/ educational purposes only.) Blood Venous blood specimen / Unknown 03/25/2022 12:16 PM EST 03/25/2022 12:17 PM EST Narrative [facility] - 03/31/2022 1:13 PM EST FASTING:NO PATIENT REFUSED SOME TESTING; PATIENT ENCOURAGED TO RETURN. FASTING: NO Keisha Lao [facility] LAB BLOOD ORDERABLES Final Res ult Performing Organization Address [facility]/ZIP Co de Phone Number [address], [facility] [place] [phone] [employer] [address] [facility], ([address]) [place] [phone] * Pap Smear (04/13/2021) Pap smear performed Historical Provider MD HEALTH MAINTENANCE Final Result from Last 3 Months or Most Recently Relevant to Health Maintenance Insurance [facility] , [address] [place] [id number] Care Teams Space Studies Faculty Member Relationship Specialty Start Date End Date Keisha Lao FNP [address] [place] [address] PCP - General Family Medicine 01/29/22
== END 2024-10-13 13:17 | disposition home or self-care (01) ==
LOC: HO.HHCL 13:16
PROVIDERS: PCP Registered Nurse; Visit Provider Registered Nurse
DX: Z00.00 Encounter for general adult medical examination without abnormal findings (principal)
CPT/HCPCS: 36415; 84702